=== PATIENT | male | born 1955 | race Caucasian/White ===

== ENCOUNTER 2016-05-21 06:04 | Inpatient (IN) | payer BC ==
[~2016-05-21 06:04] MED LIST: CENTRUM COMPLE1 EAC1 PO; FISH OIL 11000 MG/CA PO; LIPITOR10 M1 PO
[2016-05-21 07:08] LABS: PROTHROMBIN TIME 11.4 SECONDS (9.0-13.6)
[2016-05-22 04:08] LABS: BASO % 0.1 % (0-2); HGB-HEMOGLOBIN 11.7 gm/dl (13.5-17.0); IMMATURE GRANULOCYTES ABSOLUTE 0.02 tho/cmm (0-0.03); IMMATURE GRANULOCYTES PERCENT 0.1 % (0-0.3); LYMPH % 9.5 % (20-45); LYMPH ABSOLUTE COUNT 1.3 tho/cmm (0.8-4.5); MCHC MEAN CORPUSCULAR HGB CONC 32.5 % (32.0-36.0); MCV (MEAN CELL VOLUME) 82.9 fl (82.0-96.0); MEAN PLATELET VOLUME 9.1 cmc (9.4-12.4); MONO % 9.4 % (0-12); MONOCYTE ABSOLUTE COUNT 1.3 tho/cmm (0.0-1.2); NEUTROPHIL ABSOLUTE COUNT 11.1 tho/cmm (1.6-8.0); NEUTROPHIL-AUTOMATED 11.1 tho/cmm (1.6-8.0); NEUTROPHILS % 80.9 % (40-80); PLATELET COUNT 233 tho/cmm (150-450); RED BLOOD COUNT 4.34 mil/cmm (4.40-5.70); RED CELL DISTRIBUTION WIDTH 14.4 % (12.4-16.4); WHITE BLOOD COUNT 13.7 tho/cmm (4.0-10.0)
[2016-05-22] MEDS ORDERED: ASPIR 8181 M1 PO (09:24)
[2016-05-22] MEDS ORDERED: ULTRAM50 M1 PO (09:25)
[2016-05-22] MEDS ORDERED: ROXICODONE5 M2 PO (09:25)
[2016-05-22] MEDS ORDERED: MILK OF MAGNESIA PO (09:26)
[2016-05-22] MEDS ORDERED: TYLENOL325 M2 PO (09:26)
[2016-05-22] MEDS ORDERED: MOBIC7.5 M2 PO (09:27)
== END 2016-05-22 14:10 | DRG 470 ==
LOC: SHSC 06:04 → ORE 08:03 → PACU 10:51 → 5EA 11:20
PROVIDERS: Physician Assistant Surgical; ADMIT Orthopaedic Surgery Foot and Ankle Surgery
PROC: 0SR904Z Replacement of Right Hip Joint with Ceramic on Polyethylene Synthetic Substitute, Open Approach (ICD-10-PCS; principal; 2016-05-21)
DX: M16.11 Unilateral primary osteoarthritis, right hip (principal); E66.9 Obesity, unspecified; E78.5 Hyperlipidemia, unspecified; Z88.0 Allergy status to penicillin; Z87.891 Personal history of nicotine dependence; Z68.31 Body mass index [BMI] 31.0-31.9, adult; Z87.442 Personal history of urinary calculi
CPT/HCPCS: C1776; J0171; J0690; J1885; J2270; J2795

== ENCOUNTER 2016-07-30 06:31 | Inpatient (IN) | payer BC ==
[~2016-07-30 06:31] MED LIST changes: +ASPIR 8181 M1 PO; +MILK OF MAGNESIA PO; +MOBIC7.5 M2 PO; +ROXICODONE5 M2 PO; +TYLENOL325 M2 PO; +ULTRAM50 M1 PO
[2016-07-30 07:55] LABS: INR 0.9 INR (0.9-1.1); PROTHROMBIN TIME 10.5 SECONDS (9.0-13.6)
[2016-07-31 05:16] LABS: BASO % 0.1 % (0-2); HCT-HEMATOCRIT 34.7 % (36.0-53.5); IMMATURE GRANULOCYTES ABSOLUTE 0.02 tho/cmm (0-0.03); IMMATURE GRANULOCYTES PERCENT 0.2 % (0-0.3); LYMPH % 10.4 % (20-45); LYMPH ABSOLUTE COUNT 1.4 tho/cmm (0.8-4.5); MCH (MEAN CORPUSCULAR HGB) 26.1 pg (28.0-32.0); MCHC MEAN CORPUSCULAR HGB CONC 31.7 % (32.0-36.0); MCV (MEAN CELL VOLUME) 82.4 fl (82.0-96.0); MEAN PLATELET VOLUME 9.1 cmc (9.4-12.4); MONO % 9.9 % (0-12); MONOCYTE ABSOLUTE COUNT 1.3 tho/cmm (0.0-1.2); NEUTROPHIL ABSOLUTE COUNT 10.5 tho/cmm (1.6-8.0); NEUTROPHIL-AUTOMATED 10.5 tho/cmm (1.6-8.0); NEUTROPHILS % 79.4 % (40-80); PLATELET COUNT 232 tho/cmm (150-450); RED BLOOD COUNT 4.21 mil/cmm (4.40-5.70); RED CELL DISTRIBUTION WIDTH 14.6 % (12.4-16.4); WHITE BLOOD COUNT 13.2 tho/cmm (4.0-10.0)
[2016-07-31] MEDS ORDERED: TYLENOL325 M2 PO (11:42)
[2016-07-31] MEDS ORDERED: ROXICODONE5 M2 PO (11:44)
[2016-07-31] MEDS ORDERED: ASPIRIN81 M1 PO (11:44)
[2016-07-31] MEDS ORDERED: ULTRAM50 M1 PO (11:45)
== END 2016-07-31 14:35 | DRG 470 ==
LOC: SHSA 06:31 → ORE 08:09 → PACU 10:11 → 5EB 11:04
PROVIDERS: ADMIT Orthopaedic Surgery Foot and Ankle Surgery
PROC: 0SRB04A Replacement of Left Hip Joint with Ceramic on Polyethylene Synthetic Substitute, Uncemented, Open Approach (ICD-10-PCS; principal; 2016-07-30)
DX: M16.12 Unilateral primary osteoarthritis, left hip (principal); Z96.641 Presence of right artificial hip joint; E78.5 Hyperlipidemia, unspecified; L29.9 Pruritus, unspecified; D72.829 Elevated white blood cell count, unspecified
CPT/HCPCS: C1776; J0171; J0690; J1885; J2270; J2795